=== PATIENT | male | born 1980 ===

== ENCOUNTER → 2018-01-31 | Outpatient (CLI) | payer OTHER | END | disposition home or self-care (01) | LOC: PNCL 12:50 | DX: M54.5 Low back pain (principal); M19.90 Unspecified osteoarthritis, unspecified site; E11.9 Type 2 diabetes mellitus without complications; K21.9 Gastro-esophageal reflux disease without esophagitis; K83.1 Obstruction of bile duct; I85.00 Esophageal varices without bleeding; F90.8 Attention-deficit hyperactivity disorder, other type; L73.8 Other specified follicular disorders; M85.88 Other specified disorders of bone density and structure, other site; Z94.4 Liver transplant status; Z88.8 Allergy status to other drugs, medicaments and biological substances; Z80.8 Family history of malignant neoplasm of other organs or systems; Z82.49 Family history of ischemic heart disease and other diseases of the circulatory system; Z83.3 Family history of diabetes mellitus; Z83.79 Family history of other diseases of the digestive system | CPT/HCPCS: 99214 ==

== ENCOUNTER → 2018-02-12 | Outpatient (CLI) | payer OTHER ==
[~2018-02-12] MED LIST: BUPIVACAINE MPF 0.25% 10 ML VIAL.; IOHEXOL 180 MG/ML 10 ML VIAL.; methylPREDNISolone ACETATE 40 MG/ML VIAL.; methylPREDNISolone ACETATE 80 MG/ML VIAL.
== END ==
LOC: PNCL 13:53
DX: M47.816 Spondylosis without myelopathy or radiculopathy, lumbar region (principal); M47.817 Spondylosis without myelopathy or radiculopathy, lumbosacral region; Z88.8 Allergy status to other drugs, medicaments and biological substances; Z79.899 Other long term (current) drug therapy
CPT/HCPCS: 64493; 64494; J1030; J1040; J3490; Q9965

== ENCOUNTER → 2018-03-05 | Outpatient (CLI) | payer OTHER | END | disposition home or self-care (01) | LOC: PNCL 12:57 | DX: M47.897 Other spondylosis, lumbosacral region (principal) | CPT/HCPCS: 99212 ==

== ENCOUNTER → 2018-04-06 | Outpatient (CLI) | payer OTHER | END | disposition home or self-care (01) | LOC: PNCL 11:28 | DX: M47.817 Spondylosis without myelopathy or radiculopathy, lumbosacral region (principal); Z88.1 Allergy status to other antibiotic agents | CPT/HCPCS: 64493; J1030; J1040; J3490; Q9965 ==

== ENCOUNTER → 2018-06-06 | Outpatient (CLI) | payer OTHER | END | disposition home or self-care (01) | LOC: PNCL 07:43 | DX: M47.897 Other spondylosis, lumbosacral region (principal); E11.9 Type 2 diabetes mellitus without complications; K21.9 Gastro-esophageal reflux disease without esophagitis | CPT/HCPCS: 99212 ==

== ENCOUNTER → 2018-06-27 | Outpatient (CLI) | payer OTHER ==
[~2018-06-27] MED LIST changes: +ATOR10TA PO; -BUPIVACAINE MPF 0.25% 10 ML VIAL.; +BUPIVACAINE MPF 0.25% 10 ML VIAL. ONE; +CA C1TAB38 PO; +CHOL100013 PO; +DEXT20CA7 PO; +HYDR-2762 PO; -IOHEXOL 180 MG/ML 10 ML VIAL.; +IOHEXOL 180 MG/ML 10 ML VIAL. ONE; +LIDOCAINE 2% PF 2ML VIAL. ONE; +LISD50CA3 PO; +METF10003 PO; +NADO40TA PO; +TACR1CAP2 PO; +TEMA30CA PO; +VITA1CAP PO; -methylPREDNISolone ACETATE 40 MG/ML VIAL.; -methylPREDNISolone ACETATE 80 MG/ML VIAL.; +methylPREDNISolone ACETATE 80 MG/ML VIAL. ONE
--- NOTE | 2018-06-28 07:46 | PAIN ---
DATE OF SERVICE: 06/27/2018 PROGRESS NOTE FOR PAIN CLINIC DIAGNOSES: Lumbar and lumbosacral spondylosis. HISTORY OF PRESENT ILLNESS: The patient is a 37-year-old male who returns for followup status post previous bilateral L5-S1 facet joint injections. The patient did very well, still about a 90% improvement on the left side. The patient reports his right side is the only side that is symptomatic now and he waited for preauthorization, he is obtained that now with his insurance provider for a right-sided L5-S1 facet joint injection today. He would like to proceed. The patient reports the pain is still tingling, cramping, aching, tight, shooting, becoming more constant in the low back on the right side. The patient reports it is a 7 on a scale of 10 at its worst, 5 on average and 3 at its least and is a 5 today, worse with rotation of motion, especially extension of the spine on the right side and rotation to the right side. The patient reports it does not awaken him from sleep at night much if he lies on the right side. The patient reports no new motor or sensory deficits, no new bowel or bladder incontinence or other complaints. PHYSICAL EXAMINATION: VITAL SIGNS: The patient's blood pressure is 122/86, pulse 78, respirations 16, temperature 98.3 degrees Fahrenheit and weight is 182 pounds. GENERAL: The patient is awake, alert, oriented, appropriate, very pleasant demeanor. HEENT: Head shows normocephalic and atraumatic. Extraocular movements are intact and symmetrical. Oral cavity: Mucous membranes are moist and pink. Dentition is intact. NECK: Shows anterior throat is supple without palpable lymphadenopathy noted. Swallow reflex is symmetrical. CHEST: Shows normal on inspection. Breath sounds are clear to auscultation bilaterally. HEART: Shows S1, S2 clear. No murmurs are auscultated. ABDOMEN: Shows previous well-healed surgical scars, is soft, nontender and nondistended. BACK: Shows spine grossly in the midline. Normal appearing thoracic kyphosis and lumbar lordotic curvature. Lumbar paraspinous muscle shows very firm, very tender, painful area of the right inferior aspect of the right paraspinous distribution, which is fairly significant in severity and very painful. The patient withdrawing from the examining hand on the right side. Left side is nontender. No tenderness over the spinous processes, sacrum or sacroiliac regions. EXTREMITIES: Lower extremities show deep tendon reflexes 2+ in the patellar and tendo calcaneus tendon are 1+. Motor exam is strong with 5/5 dorsiflexion, extension, quadriceps, hamstring flexion and equal. Peripheral pulses are 1+ posterior tibia. No peripheral edema is noted. Options were discussed with the patient. The patient's old chart was reviewed as was his current medication regimen updated. Current review of systems updated today as well. We will proceed with a right side L5-S1 facet joint injection today with fluoroscopic guidance. Risks were again discussed including, but not limited to bleeding, infection, possibility of intravascular injection sequelae, epidural hematoma, subsequent neurological compromise, dural punctures, headaches, spinal cord and/or nerve damage, side effects of steroid medication and poor results regarding pain control. The patient understands and wished to proceed. The patient will return to the clinic in approximately 2 weeks for followup, was counseled as to return appointment and activity level and side effects to be aware of. DIAGNOSIS: Lumbar and lumbosacral spondylosis. PROCEDURE: Right sided L5-S1 facet joint injection under sterile prep and drape using local anesthetic under C-arm fluoroscopic guidance. MEDICATIONS INJECTED: A total of 1 mL of 0.25% bupivacaine and 80 mg Depo-Medrol plus 0.5 mL of Omnipaque for contrast. CONDITION ON DISCHARGE: Stable. The patient tolerated the procedure well and had no complications. LUCINA ORTA MD DR: CRISTOBAL/meliton JOB#: [id number] / [id number]
== END | disposition home or self-care (01) ==
LOC: PNCL 14:10
PROVIDERS: ATTEND Anesthesiology
DX: M47.817 Spondylosis without myelopathy or radiculopathy, lumbosacral region (principal); Z79.899 Other long term (current) drug therapy; Z88.1 Allergy status to other antibiotic agents; E11.9 Type 2 diabetes mellitus without complications; Z79.84 Long term (current) use of oral hypoglycemic drugs; K21.9 Gastro-esophageal reflux disease without esophagitis
CPT/HCPCS: 64493; J1040; J2001; J3490; Q9965

== ENCOUNTER → 2018-07-11 | Outpatient (CLI) | payer OTHER ==
[~2018-07-11] MED LIST changes: -BUPIVACAINE MPF 0.25% 10 ML VIAL. ONE; -IOHEXOL 180 MG/ML 10 ML VIAL. ONE; -LIDOCAINE 2% PF 2ML VIAL. ONE; -methylPREDNISolone ACETATE 80 MG/ML VIAL. ONE
--- NOTE | 2018-07-12 00:22 | PAIN ---
DATE OF SERVICE: 07/11/2018 PROGRESS NOTE FOR PAIN CLINIC DIAGNOSIS: Lumbar and lumbosacral spondylosis. HISTORY OF PRESENT ILLNESS: The patient is a 37-year-old male who returns for followup status post bilateral facet joint injections and right lumbar facet injection on his last visit on June 27. The patient reports about 80% improvement with each of the injections, lasting for about 2 weeks. The patient reports he overdid it after his last injection on the right side earlier this month and moving a series of about 40 or so long, 12 foot boards with bending, stooping and twisting, which seemed to exacerbate the pain in the right side. The left side is still doing fairly well with even about a 50% improvement on the left side overall after initial 80% improvement to 90% in the first week or two. The patient reports the pain is an 8 on a scale of 10 now on his right side at its worst, 6 on average, 2 at its least and is aching, tight, shooting, cramping, constant, becoming more severe without any radiation in the lower extremities. The patient reports it was worse with extension of the lumbar spine and axial loading of the low back. The patient reports no loss of motor function, better with lying down, does not awaken her from sleep at night, but with sitting can exacerbate it significantly when he is using his computer. PHYSICAL EXAMINATION: VITAL SIGNS: The patient's blood pressure 120/75, pulse 58, respirations 18, temperature is 97.8 degrees Fahrenheit, height is 5 feet 10 inches and weight is 181 pounds. GENERAL: The patient is awake, alert, oriented, appropriate and very pleasant demeanor. HEENT: Head shows normocephalic and atraumatic. Extraocular movements intact and symmetrical. Oral cavity: Mucous membranes moist and pink. Dentition is intact. NECK: Shows anterior throat supple without palpable lymphadenopathy noted. Swallow reflex is symmetrical. CHEST: Shows normal with inspection. Breath sounds clear to auscultation bilaterally. HEART: Shows S1 and S2 clear. No murmurs auscultated. ABDOMEN: Soft, nontender and nondistended. No palpable organomegaly is noted. No rebound or guarding demonstrated. BACK: Shows spine grossly in the midline. Normal appearing thoracic kyphosis and lumbar lordotic curvature. Lumbar paraspinous muscle shows symmetrical on inspection, with palpation shows some moderate tenderness diffusely, more in the right than the left in the low lumbar distribution of the paraspinous muscles but only diffusely without radiation, without atrophy or hypertrophy. The patient's sacrum and sacroiliac regions are nontender as are the spinous processes in the lumbar spine. The patient has good rotational motion with significant tenderness with extension of the lumbar spine and axial loading in the lumbar facet joints, especially on the right side much more pain reported on the right than the left but present bilaterally. This is decreased with forward flexion at 45 degrees, right and left lateral rotation shows some moderate tenderness in the back itself with right lateral rotation greater than 10 degrees but not with left. EXTREMITIES: Lower extremities show deep tendon reflexes at 2+ in the patellar, 1+ tendo-calcaneus tendons are equal. Motor exam is strong with 5/5 dorsiflexion, extension, quadriceps and hamstring flexion and equal. Peripheral pulses are 1+ posterior tibial. No peripheral edema is noted bilaterally. Options were discussed with the patient. The patient's old chart was reviewed as well as his current medication regimen updated. Current review of systems updated today as well. We will preauthorize the patient for radiofrequency ablation of the medial branches at the L4-L5 and L5-S1 facets bilaterally. The patient has done very well with the diagnostic procedures x 3 now with good results. The patient would like to proceed with this. We will have him return once preauthorization is obtained and plan on radiofrequency ablation, bilateral L4-L5 and L5-S1 medial branches at that time. LUICNA ORTA MD DR: CRISTOBAL/meliton JOB#: [id number] / [id number]
== END | disposition home or self-care (01) ==
LOC: PNCL 14:29
PROVIDERS: ATTEND Anesthesiology
DX: M47.897 Other spondylosis, lumbosacral region (principal); E11.9 Type 2 diabetes mellitus without complications; K21.9 Gastro-esophageal reflux disease without esophagitis
CPT/HCPCS: 99212

== ENCOUNTER → 2019-09-16 | Outpatient (CLI) | payer OTHER ==
[~2019-09-16] MED LIST changes: +CALC-98 PO; -HYDR-2762 PO; +HYDR-2765 PO; -METF10003 PO; +METF10007 PO
--- NOTE | 2019-09-16 19:11 | PAIN ---
DATE OF SERVICE: 09/16/2019 PROGRESS NOTE FOR PAIN CLINIC DIAGNOSES: Lumbar and lumbosacral spondylosis. HISTORY OF PRESENT ILLNESS: The patient is a 38-year-old male who returns for followup status post previous lumbar facet injections, both bilateral L4-L5 and L5-S1 with good results about 80-90% improvement for the first 2 weeks following the procedures, most recent was 06/27/2018. The patient reports the pain is almost gone. He has increased his activity with greater ease and comfort. The patient had some difficulties with his insurance and copays which prompted him to put off of the procedure as we cleared him for radiofrequency ablation. After he had 2 successful facet joint injections with equal results, the patient reports the pain has been returning now and he has been getting by over the past year. The pain is a 9 on a scale of 10 at its worst over the past week, 6 on average, 2 at its least and is a 6 today. The patient reports it is tingling, burning, stabbing, aching, sharp, shooting across the low back, but without radiation to lower extremities, worse with extension of the lumbar spine and axial loading of the low back, better with forward flexion, right and left lateral rotation is moderately tender bilaterally. The patient reports no new motor or sensory deficits, awakening him from sleep at night about every 6 hours. It keeps him from going to sleep more importantly. PHYSICAL EXAMINATION: VITAL SIGNS: The patient's blood pressure 125/81, pulse 63, respirations 16, temperature is 98.6 degrees Fahrenheit, height is 5 feet 8 inches, and weight is 182 pounds. GENERAL: The patient is awake, alert, oriented, appropriate, very pleasant demeanor. HEENT: Shows normocephalic, atraumatic. Extraocular movements are intact and symmetrical. Oral cavity: Mucous membranes moist and pink. Dentition intact. NECK: Shows anterior throat supple without palpable lymphadenopathy noted. Swallow reflex symmetrical. CHEST: Shows normal on inspection. Breath sounds are clear bilaterally. HEART: Shows S1, S2 clear. ABDOMEN: Soft, nontender, and nondistended. Well-healed surgical scarring is noted. BACK: Shows spine grossly in the midline. Lumbar paraspinous muscle shows symmetrical on inspection, on palpation shows some moderate tenderness diffusely throughout the upper, middle and lower distribution of paraspinous muscles bilaterally. The patient shows good rotational motion with some moderate tenderness with right and left lateral rotation greater than 10 degrees. Significant tenderness with greater than 10 degrees, extension and axial loading better with forward 45 degrees flexion without significant pain. EXTREMITIES: The patient's lower extremities show deep tendon reflexes 2+ in the patellar, 1+ tendo-calcaneus tendons. Motor exam is 5/5 with dorsiflexion, extension, quadriceps and hamstring flexion. Peripheral pulses are 1+ posterior tibia. No peripheral edema is noted. Options were discussed with the patient. The patient's old chart was reviewed as his current medication regimen updated. Current review of systems updated today as well. We will preauthorize the patient for radiofrequency ablation, bilateral L4-L5 and L5-S1 medial branches. The patient has had good results with 80-90% improvement for 2 weeks twice after diagnostic facet joint injections and would like to proceed with radiofrequency ablation. We will make the arrangements. The patient in the meantime will maintain exercising for strengthening and stretching exercises as he has been doing over the past year and walking daily as tolerated. The patient will follow up in approximately 2 weeks. We will plan on radiofrequency ablation, bilateral L4-L5 and L5-S1 medial branches at that time. LUCINA ORTA MD DR: CRISTOBAL/meliton JOB#: [id number] / [id number]
== END ==
LOC: PNCL 13:28
PROVIDERS: ATTEND Anesthesiology
DX: M47.817 Spondylosis without myelopathy or radiculopathy, lumbosacral region (principal)
CPT/HCPCS: G0463